=== PATIENT | male | born 1970 | race Caucasian/White ===

== ENCOUNTER 2023-10-31 18:47 | Emergency (ER) | payer OTHER, SELFPAY ==
[2023-10-31 18:55] VITALS: BP 170/88
[2023-10-31 19:22] LABS: % Basophils 0.3 % (0-2); % Eosinophils 0.5 % (0-6); % Immature Granulocytes 0.3 % (0-0.5); % Lymphocytes 33.5 % (20.5-51.1); % Monocytes 7.5 % (1.7-9.3); % Neutrophils 57.9 % (42.2-75.2); Absolute Lymphocytes 2.1 10^3/uL (1.2-3.4); Absolute Monocytes 0.5 10^3/uL (0.1-0.6); Absolute Neutrophils 3.7 10^3/uL (1.4-6.5); Hematocrit 43.3 % (39.0-52.0); Hemoglobin 14.7 g/dL (13.0-18.0); Mean Corp Hgb Conc. 33.9 g/dL (33.0-37.0); Mean Corpuscular Hgb 29.9 pg (27.0-31.0); Mean Corpuscular Volume 88.2 fL (80.0-94.0); Mean Platelet Volume 10.3 fL (7.4-10.4); Nucleated Red Blood Cells % 0 % (-); Platelet Count 146 10^3/uL (130-400); Red Blood Cell Count 4.91 10^6/uL (4.70-6.10); White Blood Cell Count 6.3 10^3/uL (4.8-10.8)
[2023-10-31 19:38] LABS: ALT (SGPT) 52 U/L (0-50); AST (SGOT) 39 U/L (17-59); Albumin 4.4 g/dl (3.5-5.0); Alkaline Phosphatase 101 U/L (38-126); Blood Urea Nitrogen 21 mg/dl (9-20); Calcium 9.7 mg/dl (8.4-10.2); Carbon Dioxide 27 mmol/L (22-30); Chloride 102 mmol/L (98-107); Glucose 119 mg/dl (70-99); Potassium 4.6 mmol/L (3.5-5.1); Sodium 138 mmol/L (135-145); Total Bilirubin 1.5 mg/dl (0.2-1.3); Total Protein 7.3 g/dl (6.3-8.2); eGFR > 60.00
[2023-10-31 19:48] LABS: Troponin I < 0.012 ng/ml
[2023-10-31 22:44] VITALS: BP 122/72
--- NOTE | 2023-10-31 22:50 | ED.GENMED ---
History of Present Illness
General
Chief Complaint: Cardiac Symptoms
Time Seen by Provider: 10/31/23 21:50
Travel History
Have you had any contact with someone who has COVID-19?: No
Do you have any symptoms of coronavirus? Fever > 100 degrees, chills, cough, shortness of breath, sore throat, loss of taste or smell, muscle aches, or headache?: No
History of Present Illness
History of Present Illness:
53-year-old male with history of hyperlipidemia and diabetes presents to the emergency department for evaluation of intermittent left-sided chest pain occurring for the past 2 to 3 days. Pain seems to be random and not obviously provoked by any
particular activity. He denies any exertional symptoms. Denies any shortness of breath or pleuritic pain. No fevers, chills, sweats, nausea, vomiting, or diarrhea. Has not take any medication to alleviate the pain. Non-smoker
Past History
Past History
ED Past Medical History: GERD
Social History
Tobacco: Non-smoker
Alcohol: Occasional
Personal:
Living: with family
Employment: Employed
Review of Systems
Review of Systems
Allergies reviewed?: Yes
All Other Systems: ROS reviewed and negative except as documented in HPI and ROS
Phy Exam
Physical Exam
Physical Exam:
GEN: Well appearing, NAD, WDWN
HEENT: Oral mucosa moist, no scleral icterus
Cardiac: Regular rate and rhythm, no murmurs
Lung: No respiratory distress, no tachypnea, lungs clear to auscultation bilaterally
MSK: No gross deformity or injuries
Skin: Good color, no pallor or jaundice, no rashes
Neuro: AO x3, moves all extremities freely
Psych: Calm, cooperative
Scores
Heart Score for Chest Pain Patients
STEMI patient?: No
History: Slightly or Non-Suspicious
ECG: Normal
Age: >45 - <65 years
Risk Factors: >/= 3 Risk Factors or History of CAD
Troponin: </= Normal Limit
Heart Score for Chest Pain Patients: 3
Heart Score Risk: 2.5% MACE over next 6 weeks
Course
Orders/Labs/Results
Orders:
Orders
10/31/23 19:00
Electrocardiogram (*1) Urgent
Reason for Study: Chest Pain
EKG- Treatment ONCE
10/31/23 19:11
CMP [Comprehensive Metabolic Panel] Urgent
Complete Blood Count/With Diff Urgent
Troponin I Urgent
Abnormal Lab Results
10/31/23
19:11
BUN 21 H mg/dl
(9-20)
Glucose 119 H mg/dl
(70-99)
Total Bilirubin 1.5 H mg/dl
(0.2-1.3)
ALT 52 H U/L
(0-50)
10/31/23 19:11
10/31/23 19:11
Vital Signs
Initial and Last Documented VS:
Initial Vital Signs
Temp Pulse Resp BP Pulse Ox
97.8 F 56 18 170/88 98
10/31/23 18:55 10/31/23 18:55 10/31/23 18:55 10/31/23 18:55 10/31/23 18:55
Last Documented Vital Signs
Temp Pulse Resp BP Pulse Ox
97.8 F 86 23 122/72 97
10/31/23 18:55 10/31/23 22:45 10/31/23 22:45 10/31/23 22:44 10/31/23 22:45
MDM/Problems Addressed
MDM/Problems Addressed:
Patient's EKG is nonischemic and physical exam is unremarkable. His history is not suggestive of acute coronary syndrome nevertheless he does have risk factors given his age, hyperlipidemia, and diabetes as well as morbid obesity. Will have the
patient follow-up through the chest pain hotline with cardiology for further evaluation
*Critical Care Note
Total Time (30-74mins, 75-104mins- exclusive of procedures): Not Applicable
ED Attending Note
-
Portions of this chart may have been created with voice recognition software.� Occasional wrong word or��sound alike� substitutions may have occurred due to the inherent limitations of voice recognition software.
Discharge Plan
Departure
Patient Disposition: Home (Routine Discharge)
Date of Disposition: 10/31/23
Time of Disposition: 22:50
Patient with high blood pressure during this ER visit?: No
Discharge Problem:
Chest pain
Instructions: Chest Pain DCA Follow Up
Referrals:
Riley Vazquez MD [Family Provider] -
Interventions
Interventions:
*Risk Screen - Suicide Last Done: 10/31/23 18:55
*General Assessment Last Done: 10/31/23 22:56
*Neglect/Abuse Screening Last Done: 10/31/23 18:55
ED- Fall Risk Assessment Last Done: 10/31/23 22:15
*ED COVID-19 Vaccine History Last Done: 10/31/23 22:56
*Nursing Disposition Last Done: 10/31/23 22:56
ED- Pulmonary Assessment Last Done: 10/31/23 22:15
ED- Cardiac Assessment Last Done: 10/31/23 22:15
Discharge Date and Time
Discharge Date/Time: 10/31/23 22:57
== END 2023-10-31 22:57 | disposition home or self-care (01) ==
LOC: EMR 18:47
PROVIDERS: Emergency Medicine; EMERGENCY PHYSICIAN Emergency Medicine; FAMILY PHYSICIAN Family Medicine
DX: R07.89 Other chest pain (principal); E78.00 Pure hypercholesterolemia, unspecified; E11.9 Type 2 diabetes mellitus without complications; K21.9 Gastro-esophageal reflux disease without esophagitis
CPT/HCPCS: 99283; 80053; 84484; 85025; 93005

== ENCOUNTER → 2023-11-09 07:15 | Outpatient (REF) | payer OTHER, SELFPAY ==
[2023-11-09] MEDS: LEXISCAN 0.400000000000000022 MG IV (09:18)
[2023-11-09] MEDS: FLUSH (NSS) 1 FLUSH IV (09:18)
== END ==
LOC: RCS 07:15
PROVIDERS: ATTENDING PHYSICIAN Internal Medicine Cardiovascular Disease; FAMILY PHYSICIAN Family Medicine
DX: R07.89 Other chest pain (principal)
CPT/HCPCS: 78452; 93017; A9500; J2785

== ENCOUNTER → 2023-12-01 14:45 | Outpatient (REF) | payer OTHER, SELFPAY | LOC: RCS 14:45 | PROVIDERS: ATTENDING PHYSICIAN Internal Medicine Cardiovascular Disease; FAMILY PHYSICIAN Family Medicine | DX: R06.09 Other forms of dyspnea (principal) | CPT/HCPCS: 93306; Q9950 ==